=== PATIENT | male | born 1995 | race African-American/Black ===

== ENCOUNTER 2016-08-15 18:39 | Emergency (ER) | payer MEDICAID, OTHER ==
[~2016-08-15] VITALS: Ht 185.4 cm; Wt 70.0 kg
[2016-08-15] MEDS ORDERED: ACETAMINOPHEN 325MG TABLET PO ONE (21:00)
[2016-08-15] MEDS ORDERED: KETOROLAC 60MG/2ML VIAL IM ONE (21:45)
[2016-08-15 23:24] VITALS: BP 101/66
== END 2016-08-16 01:02 | disposition home or self-care (01) ==
LOC: ER 20:40
DX: S93.401A Sprain of unspecified ligament of right ankle, initial encounter (principal); M21.071 Valgus deformity, not elsewhere classified, right ankle; W17.89XA Other fall from one level to another, initial encounter; Y93.67 Activity, basketball; Y92.89 Other specified places as the place of occurrence of the external cause; Y99.8 Other external cause status
CPT/HCPCS: 29515; 73610; 73630; 96372; 99284; J1885

== ENCOUNTER 2017-06-03 14:48 | Emergency (ER) | payer OTHER ==
[~2017-06-03] VITALS: Ht 185.4 cm; Wt 72.0 kg
[2017-06-03] MEDS ORDERED: IBUPROFEN 800MG TABLET PO ONE (20:30)
[2017-06-03 21:50] VITALS: BP 117/63
== END 2017-06-03 21:56 | disposition home or self-care (01) ==
LOC: ER 20:44
DX: S83.92XA Sprain of unspecified site of left knee, initial encounter (principal); W01.0XXA Fall on same level from slipping, tripping and stumbling without subsequent striking against object, initial encounter; Y93.66 Activity, soccer; Y92.39 Other specified sports and athletic area as the place of occurrence of the external cause
CPT/HCPCS: 73562; 99284; L1830